=== PATIENT | female | born 1985 | race Two or more races ===

== ENCOUNTER → 2023-06-06 11:39 | Outpatient (CLI) | payer OTHER | END | disposition home or self-care (01) | LOC: PRENATAL 11:39 | PROVIDERS: ATTEND Obstetrics & Gynecology Maternal & Fetal Medicine | DX: Z76.1 Encounter for health supervision and care of foundling (principal) ==

== ENCOUNTER 2023-06-19 07:59 | Outpatient (CLI) | payer OTHER | END 2023-06-19 08:00 | disposition home or self-care (01) | LOC: PRENATAL 07:59 | PROVIDERS: ATTEND Obstetrics & Gynecology Maternal & Fetal Medicine | DX: O35.9XX0 Maternal care for (suspected) fetal abnormality and damage, unspecified, not applicable or unspecified (principal); O35.3XX0 Maternal care for (suspected) damage to fetus from viral disease in mother, not applicable or unspecified; O44.00 Complete placenta previa NOS or without hemorrhage, unspecified trimester; O09.529 Supervision of elderly multigravida, unspecified trimester; O28.1 Abnormal biochemical finding on antenatal screening of mother; Z3A.19 19 weeks gestation of pregnancy ==